=== PATIENT | female | born 1955 | race American Indian/Alaskan Native ===

== ENCOUNTER 2019-03-13 18:48 | Emergency (ER) | payer BC, OTHER ==
--- NOTE | 2019-03-13 19:45 | Event Note ---
ED Screening Note Date of service: 03/13/19 Time: 19:40 ED Screening Note: This is a 63 y.o. SOB, left sided chest pain, and edema for 2 days that is worsening. Chest pain radiating to RUE. PMH of left lung CA stage 4, pending treatment and polycythemia vera Patient states her oncologist stopped blood thinner for 5 days because they had to unclog port. She had a negative bilateral doppler last Tuesday. This initial assessment/diagnostic orders/clinical plan/treatment(s) is/are subject to change based on patients health status, clinical progression and re- assessment by fellow clinical providers in the ED. Further treatment and workup at subsequent clinical providers discretion. Patient/guardian urged not to elope from the ED as their condition may be serious if not clinically assessed and managed. Initial orders include: Labs, ekg, & cxr
--- NOTE | 2019-03-13 20:32 | XRay Report ---
CHEST 1 VIEW 2007 INDICATION / CLINICAL INFORMATION: Chest Pain. COMPARISON: None available. FINDINGS: SUPPORT DEVICES: Right jugular Port-A-Cath has its tip in the area of the distal superior vena cava. HEART / MEDIASTINUM: No significant abnormality LUNGS / PLEURA: No significant pulmonary or pleural abnormality. No pneumothorax. ADDITIONAL FINDINGS: No significant additional findings. IMPRESSION: No significant changes Signer Name: Juan Ramon Cee MD Signed: 03/13/2019 8:28 PM Workstation Name: [id number]
[2019-03-13 20:56] LABS: Basophils # (Auto) 0.1 K/mm3 (0.0-0.1); Basophils % (Auto) 1.6 % (0.0-1.8); Eosinophils # (Auto) 0.2 K/mm3 (0.0-0.4); Eosinophils % (Auto) 3.5 % (0.0-4.3); Hematocrit 36.5 % (30.3-42.9); Hemoglobin 12.4 gm/dl (10.1-14.3); Lymphocytes # (Auto) 1.1 K/mm3 (1.2-5.4); Lymphocytes % (Auto) 17.9 % (13.4-35.0); Mean Corpuscular HGB Conc 34 % (30-34); Mean Corpuscular Volume 88 fl (79-97); Monocytes # (Auto) 0.5 K/mm3 (0.0-0.8); Monocytes % (Auto) 7.9 % (0.0-7.3); Platelet Count 327 K/mm3 (140-440); Red Blood Count 4.17 M/mm3 (3.65-5.03); Red Cell Distribution Width 17.6 % (13.2-15.2)
[2019-03-13 21:13] LABS: BUN/Creatinine Ratio 13; Blood Urea Nitrogen 16 mg/dL (7-17); Calcium 9.1 mg/dL (8.4-10.2); Hemolysis Index 13
[2019-03-13 22:47] VITALS: BP 153/74
--- NOTE | 2019-03-14 01:33 | Emergency Department Report ---
<BEAU WADE - Last Filed: 03/14/19 05:59> ED Chest Pain HPI - General Chief Complaint: Chest Pain Stated Complaint: SOB/CHEST PAIN/R ARM NUMBNESS Time Seen by Provider: 03/13/19 19:39 Source: patient Mode of arrival: Ambulatory Limitations: No Limitations - History of Present Illness Initial Comments: 63-year-old -[place] female presents to the emergency room for left sided chest pain that radiates to her back and left arm with numbness times a couple of days. Patient states last week on 03/02/2019 she had a procedure that went through her groin. Patient states that she has stopped her blood thinners(plavix) for 5 days but has been back on them. Complains of bilateral lower leg swelling. Patient does admit to shortness of breath. Patient denies any nausea or vomiting. Patient denies any headache but does admit to shortness of breath with walking. Patient currently has a history of hypertension, stage IV lung cancer and hypothyroidism. Patient also reports she has polycythemia. Chest pain 5 out of 10. She reports her next appointment to her oncologist is 03/28/2019. She is followed by Collin Castellanos at [facility]. Patient is not currently on chemotherapy or radiation. MD Complaint: chest pain Onset/Timin -: week(s) Onset: during exertion Pain Location: left chest Pain Radiation: LUE, back Severity scale (0 -10): 5 Consistency: constant Improves With: nothing Worsens With: exertion Context: recent surgery (procedure through her groin) - Related Data On Oral Contraceptives: No Home Medications Medication Instructions Recorded Confirmed Last Taken Clopidogrel [Plavix] 75 mg PO QDAY 03/14/19 03/14/19 Unknown Hyoscyamine Sulfate [Hyoscyamine 0.125 mg PO Q4H PRN 03/14/19 03/14/19 Unknown Rapdis 0.125 mg] Levothyroxine [Synthroid] 150 mcg PO QAM 03/14/19 03/14/19 Unknown Losartan-Hctz 50-12.5 mg Tab 1 tab PO DAILY 03/14/19 03/14/19 Unknown Losartan/Hydrochlorothiazide 1 tab DAILY 03/14/19 03/14/19 Unknown [Losartan-Hctz 100-25 mg Tab] Montelukast [Singulair] 10 mg PO QPM 03/14/19 03/14/19 Unknown Omeprazole 40 PO DAILY 03/14/19 Unknown Ondansetron [Zofran ODT TAB] 8 mg PO Q8HR 03/14/19 03/14/19 Unknown Previous Rx's Medication Instructions Recorded Last Taken Type HYDROcodone/APAP 5-325 [[place] 1 each PO Q6HR PRN #12 tablet 03/14/19 Unknown Rx 5/325] Allergies Allergy/AdvReac Type Severity Reaction Status Date / Time aspirin Allergy Rash Verified 03/13/19 18:55 Penicillins Allergy Swelling Verified 10/10/13 09:12 Sulfa (Sulfonamide Allergy Swelling Verified 10/10/13 09:13 Antibiotics) Heart Score - HEART Score History: Slightly suspicious EKG: Normal Age: 45-65 Risk factors: 1-2 risk factors Troponin: 1-3x normal limit HEART Score: 3 ED Review of Systems Comment: All other systems reviewed and negative Respiratory: SOB with exertion Cardiovascular: chest pain Neurological: numbness (intermittent left arm) ED Past Medical Hx - Past Medical History Previous Medical History?: Yes Hx Hypertension: Yes Hx of Cancer: Yes (lung) Additional medical history: polycythemia vera - Surgical History Past Surgical History?: Yes Additional Surgical History: port placement. stomach staple. x 1. cyst removed from kidney. thyroidectomy - Social History Smoking Status: Never Smoker Substance Use Type: None - Medications Home Medications: Home Medications Medication Instructions Recorded Confirmed Last Taken Type Clopidogrel [Plavix] 75 mg PO QDAY 03/14/19 03/14/19 Unknown History HYDROcodone/APAP 5-325 [[place] 1 each PO Q6HR PRN #12 tablet 03/14/19 Unknown Rx 5/325] Hyoscyamine Sulfate [Hyoscyamine 0.125 mg PO Q4H PRN 03/14/19 03/14/19 Unknown History Rapdis 0.125 mg] Levothyroxine [Synthroid] 150 mcg PO QAM 03/14/19 03/14/19 Unknown History Losartan-Hctz 50-12.5 mg Tab 1 tab PO DAILY 03/14/19 03/14/19 Unknown History Losartan/Hydrochlorothiazide 1 tab DAILY 03/14/19 03/14/19 Unknown History [Losartan-Hctz 100-25 mg Tab] Montelukast [Singulair] 10 mg PO QPM 03/14/19 03/14/19 Unknown History Omeprazole 40 PO DAILY 03/14/19 Unknown History Ondansetron [Zofran ODT TAB] 8 mg PO Q8HR 03/14/19 03/14/19 Unknown History ED Physical Exam - General Limitations: No Limitations General appearance: alert, in no apparent distress - Head Head exam: Present: atraumatic, normocephalic - ENT ENT exam: Present: mucous membranes moist - Respiratory Respiratory exam: Present: normal lung sounds bilaterally, chest wall tenderness. Absent: respiratory distress, wheezes, rales, rhonchi, accessory muscle use - Cardiovascular Cardiovascular Exam: Present: regular rate, normal rhythm. Absent: systolic murmur, diastolic murmur, rubs, gallop - GI/Abdominal GI/Abdominal exam: Present: soft, normal bowel sounds. Absent: distended, tenderness - Expanded Upper Extremity Exam Left Shoulder Exam: Present: normal inspection, full ROM. Absent: tenderness, swelling Upper Arm exam: Present: normal inspection, full ROM. Absent: tenderness, swelling Elbow exam: Present: normal inspection, full ROM. Absent: tenderness, swelling Forearm Wrist exam: Present: normal inspection, full ROM. Absent: tenderness, swelling Hand Wrist exam: Present: normal inspection, full ROM. Absent: tenderness, swelling Vascular: Present: normal capillary refill - Back Exam Back exam: Present: normal inspection, full ROM - Neurological Exam Neurological exam: Present: alert, oriented X3 - Psychiatric Psychiatric exam: Present: normal affect, normal mood - Skin Skin exam: Present: warm, dry, intact, normal color. Absent: rash PELON score - Pelon Score Age > 65: (0) No Aspirin use within the Past 7 Days: (0) No 3 or more CAD Risk Factors: (0) No 2 or more Angina events in past 24 hrs: (0) No Known CAD with more than 50% Stenosis: (0) No Elevated Cardiac Markers: (0) No ST Deviation Greater than 0.5mm: (0) No PELON Score: 0 ED Medical Decision Making - Lab Data Result diagrams: 03/13/19 20:23 03/13/19 20:23 Laboratory Results - last 72 hr 03/13/19 03/13/19 03/13/19 20:23 20:23 21:54 WBC 6.1 RBC 4.17 Hgb 12.4 Hct 36.5 MCV 88 MCH 30 MCHC 34 RDW 17.6 H Plt Count 327 Lymph % (Auto) 17.9 [place] % (Auto) 7.9 H Eos % (Auto) 3.5 Baso % (Auto) 1.6 Lymph # 1.1 L [place] # 0.5 Eos # 0.2 Baso # 0.1 Seg Neutrophils % 69.1 Seg Neutrophils # 4.2 Sodium 141 Potassium 4.3 Chloride 102.4 Carbon Dioxide 22 Anion Gap 21 BUN 16 Creatinine 1.2 Estimated GFR 55 BUN/Creatinine Ratio 13 Glucose 99 Calcium 9.1 Troponin T < 0.010 < 0.010 NT-Pro-B Natriuret Pep 57.35 - Medical Decision Making 53-year-old -[place] female presents to the emergency room for left sided chest pain that radiates to her back and left arm with numbness times a couple of days. Patient states last week on 03/02/2019 she had a procedure that went through her groin. Patient states that she has stopped her blood thinners(plavix) for 5 days but has been back on them. Complains of bilateral lower leg swelling. Patient does admit to shortness of breath. Patient denies any nausea or vomiting. Patient denies any headache but does admit to shortness of breath with walking. Patient currently has a history of hypertension, stage IV lung cancer and hypothyroidism. Patient also reports she has polycythemia. Chest pain 5 out of 10. She reports her next appointment to her oncologist is 03/28/2019. She is followed by Collin Castellanos at [facility]. Patient is not currently on chemotherapy or radiation. CTA of chest has been ordered three neg troponin, Normal EKG, Reproducible chest pain. CTA pending. ED Disposition Clinical Impression: Atypical chest pain, Lung cancer Disposition: DC-01 TO HOME OR SELFCARE Is pt being admited?: No Does the pt Need Aspirin: No Condition: Stable Instructions: Chest Pain (ED) Additional Instructions: Please take pain medication as needed. Follow up with your primary care provider in next 2-3 days. Return is symptoms worsen as indicated by your discharge instructions. Prescriptions: HYDROcodone/APAP 5-325 [[place] 5/325] 1 each PO Q6HR PRN #12 tablet PRN Reason: Pain Referrals: FARIDEH LÓPEZ [Other] - 3-5 Days <POSEYBESSIE Aditi - Last Filed: 03/14/19 06:44> ED Review of Systems ROS: Stated complaint: SOB/CHEST PAIN/R ARM NUMBNESS Other details as noted in HPI ED Course Vital Signs 03/13/19 03/13/19 03/14/19 19:43 22:46 04:00 Temperature 97.9 F 98.0 F Pulse Rate 77 63 Respiratory 16 14 20 Rate Blood Pressure 142/78 153/74 O2 Sat by Pulse 98 96 97 Oximetry - Reevaluation(s) Reevaluation #1: 03/14/19 05:56 I spoke to patient at this time. She states she does not have any pain she has been E ER. She's had intermittent pain to her left chest and numbness to the left arm going down to her elbow for the past 2 days. She describes left-sided chest pain as electric shock that is intermittent and without any aggravating or alleviating factors. She has progressively worsening shortness of breath secondary to lung cancer with no acute changes. She denies nausea, vomiting, or diaphoresis. On March 04 patient states that she had a seizure Tuesday went through her groins with the clock or port. She had a ultrasound after the procedure to rule out DVT. She reports she had a negative stress test 2 years ago prior to initiating chemotherapy. Patient states she is asymptomatic and wants to go home. CT angiogram pending to rule out PE. ED Medical Decision Making - Lab Data Result diagrams: 03/13/19 20:23 03/13/19 20:23 - EKG Data -: EKG Interpreted by Ri EKG shows normal: sinus rhythm, ST-T waves (no stemi) - EKG Data 03/14/19 06:07 nsr rate 63 no stemi - Radiology Data Radiology results: report reviewed CTA CHEST WITH IV CONTRAST INDICATION: Acute onset chest pain with dyspnea. His tory of lung cancer. TECHNIQUE: Axial CT images were obtained through the chest after injection of IV contrast. 3 plane MIP reconstructions were produced. All CT scans at this location are performed using CT dose reduction for ALARA by means of automated exposure control. COMPARISON: None available. FINDINGS: PULMONARY ARTERIES: No pulmonary emboli. AORTA AND ARTERIES: No acute abnormality. MEDIASTINUM: No mass, lymphadenopathy or other significant abnormality. The heart is normal in size without a pericardial effusion. The trachea and main bronchi are patent and normal in caliber. LUNGS: There is a suspicious spiculated nodule within the posterior and inferior aspect of the left upper lobe, lingular segment measuring 1.6 cm in diameter. Satellite nodularity is noted measuring up to 6 mm in diameter within the adjacent lingular segment of the left upper lobe. There is a 6 mm nodule within the superior aspect of the left lower lobe. No contralateral right lung nodule identified ADDITIONAL FINDINGS: None. UPPER ABDOMEN: No acute findings. BONES: No significant osseous abnormality. IMPRESSION: 1. No CT evidence for pulmonary embolism. 2. Suspicious spiculated 1.6 cm nodule within the left upper lobe worrisome for malignancy, as above. Multiple satellite nodules present within the left upper lobe. Focal nodule within the left lower lobe is also worrisome for metastatic disease. - Medical Decision Making cta neg for pe pt will be d/rosaura Patient ekg nsr x2 Patient informed to return if chest pressure with shortness of breath, nausea, vomiting, diaphoresis or syncope/near syncope. Critical care attestation.: If time is entered above; I have spent that time in minutes in the direct care of this critically ill patient, excluding procedure time. ED Disposition Time of Disposition: 06:40
--- NOTE | 2019-03-14 06:36 | Cat Scan Report ---
CTA CHEST WITH IV CONTRAST INDICATION: Acute onset chest pain with dyspnea. History of lung cancer. TECHNIQUE: Axial CT images were obtained through the chest after injection of IV contrast. 3 plane MIP reconstru ctions were produced. All CT scans at this location are performed using CT dose reduction for ALARA b y means of automated exposure control. COMPARISON: None available. FINDINGS: PULMONARY ARTERIES: No pulmonary emboli. AORTA AND ARTERIES: No acute abnormality. MEDIASTINUM: No mass, lymphadenopathy or other significant abnormality. The heart is normal in size w ithout a pericardial effusion. The trachea and main bronchi are patent and normal in caliber. LUNGS: There is a suspicious spiculated nodule within the posterior and inferior aspect of the left u pper lobe, lingular segment measuring 1.6 cm in diameter. Satellite nodularity is noted measuring up to 6 mm in diameter within the adjacent lingular segment of the left upper lobe. There is a 6 mm nodu le within the superior aspect of the left lower lobe. No contralateral right lung nodule identified A DDITIONAL FINDINGS: None. UPPER ABDOMEN: No acute findings. BONES: No significant osseous abnormality. IMPRESSION: 1. No CT evidence for pulmonary embolism. 2. Suspicious spiculated 1.6 cm nodule within the left upper lobe worrisome for malignancy, as above. Multiple satellite nodules present within the left upper lobe. Focal nodule within the left lower lo be is also worrisome for metastatic disease. Signer Name: Will Olea MD Signed: 03/14/2019 6:32 AM Workstation Name: [id number]
== END 2019-03-14 06:50 | disposition home or self-care (01) ==
LOC: ED 18:48
DX: R07.89 Other chest pain (principal); C34.92 Malignant neoplasm of unspecified part of left bronchus or lung; I10 Essential (primary) hypertension; Z90.89 Acquired absence of other organs; Z88.6 Allergy status to analgesic agent; Z88.0 Allergy status to penicillin; Z88.2 Allergy status to sulfonamides; Z79.899 Other long term (current) drug therapy
CPT/HCPCS: 36415; 71045; 71275; 80048; 83880; 84484; 85025; 93005; 93010; 99285; Q9967